=== PATIENT | male | born 1995 | race Caucasian/White ===

== ENCOUNTER 2019-05-03 23:27 | Emergency (ER) | payer SELFPAY ==
[~2019-05-03] VITALS: Ht 175.3 cm; Wt 59.0 kg
[2019-05-04] MEDS ORDERED: SODIUM CHLORIDE 0.9% 1,000 ML IV ONE ×2 (03:30→05:30)
[2019-05-04 09:37] VITALS: BP 98/50
== END 2019-05-04 09:47 | disposition home or self-care (01) ==
LOC: ER 23:27
DX: F10.129 Alcohol abuse with intoxication, unspecified (principal); Y90.9 Presence of alcohol in blood, level not specified
CPT/HCPCS: 82962; 99283; J7030